=== PATIENT | male | born 1950 | race Caucasian/White ===

== ENCOUNTER 2021-07-20 11:00 | Inpatient (IN) ==
[2021-07-20] MEDS ORDERED: Naloxone 0.4 MG/ML INJ IVP PRN (14:02)
[2021-07-20] MEDS ORDERED: *HR* Heparin 5,000 UNIT/ML VIAL IVP ONE (14:21)
[2021-07-20] MEDS ORDERED: *HR* Heparin 5,000 UNIT/ML VIAL IVP PRN ×2 (14:21)
[2021-07-20] MEDS ORDERED: *HR* Dextrose 50 % in Water (Syg) 50 ML SYRINGE IVP PRN (14:32)
[2021-07-20] MEDS ORDERED: D5% in Water 1,000 ML IVC PRN (14:32)
[2021-07-20] MEDS ORDERED: Dextrose 4 GM Chewable Tablets PO PRN ×2 (14:32)
[2021-07-20] MEDS: Heparin 25,000UNIT/250ML 1/2NS 25,000 UNIT/250 ML IV.SOLN IVC SCH (14:54)
[2021-07-20 15:20] LABS: Heparin anti-factor XA UFH 0.29 IU/mL (0.30-0.70)
[2021-07-20 15:21] LABS: Prothrombin Time 11.5 Seconds (9.4-12.1)
[2021-07-20 15:29] LABS: Hematocrit 41.3 % (37.5-50.1); Hemoglobin 14.9 g/dL (12.9-16.9); Mean Corpuscular HGB Conc 36.1 g/dL (31.6-35.5); Mean Corpuscular Hemoglobin 33.9 pg (28.0-33.3); Mean Corpuscular Volume 93.9 fL (83.0-100.0); Mean Platelet Volume 10.4 fL (9.4-12.4); Platelet Count 301 K/mcL (140-400); Red Cell Distribution Width 12.3 % (11.5-14.5); White Blood Count 11.4 K/mcL (4.3-11.1)
[2021-07-20] MEDS: Insulin LISPRO 300 UNITS/3 ML VIAL SUBQ SCH ×2 (16:14→21:10)
[2021-07-20] MEDS ORDERED: Perflutren Lipid Microsphere 1.3 ML in 0.9 % Sodium Chloride 8.7 ML IVP PRN (17:45)
[2021-07-20] MEDS ORDERED: Insulin DETEMIR 100 UNIT/ML X5UNITS SUBQ SCH (18:00)
[2021-07-20] MEDS: Aspirin Enteric Coated 81 MG Tablet PO SCH (18:31)
[2021-07-20] MEDS: Artificial Tears SOLN 15 ML BOTTLE BOTH EYES SCH (21:08)
[2021-07-20] MEDS: Spironolactone 25 MG TABLET PO SCH (21:08)
[2021-07-21 01:44] LABS: Basophils % 0.4 %; Eosinophils # 0.2 K/mcL (0.0-0.6); Eosinophils % 2.1 %; Hematocrit 37.4 % (37.5-50.1); Hemoglobin 13.6 g/dL (12.9-16.9); Immature Granulocytes % 0.8 % (0-4); Lymphocytes # 2.7 K/mcL (0.6-4.6); Lymphocytes % 27.3 %; Mean Corpuscular HGB Conc 36.4 g/dL (31.6-35.5); Mean Corpuscular Hemoglobin 33.9 pg (28.0-33.3); Mean Corpuscular Volume 93.3 fL (83.0-100.0); Mean Platelet Volume 10.7 fL (9.4-12.4); Monocytes # 0.8 K/mcL (0.0-1.3); Monocytes % 8.5 %; Platelet Count 259 K/mcL (140-400); Red Blood Count 4.01 M/mcL (4.19-5.50); Red Cell Distribution Width 12.2 % (11.5-14.5); Segmented Neutrophils % 60.9 %; White Blood Count 9.8 K/mcL (4.3-11.1)
[2021-07-21 02:00] LABS: BUN/Creatinine Ratio 12 (6-26); Blood Urea Nitrogen 17 mg/dL (8-23); Carbon Dioxide 24 mEq/L (23-29); Chloride 102 mEq/L (98-107); Glucose 143 mg/dL (70-105); Osmolality,Calculated 282 (280-300); Potassium 3.9 mEq/L (3.5-5.1); Sodium 134 mEq/L (136-145); eGFR For African Americans > 60 (> 60); eGFR For Non-African Americans 51 (> 60)
[2021-07-21 02:03] LABS: Troponin I 0.06 ng/mL (< 0.04)
[2021-07-21] MEDS: Heparin 25,000UNIT/250ML 1/2NS 25,000 UNIT/250 ML IV.SOLN IVC SCH (06:53)
[2021-07-21] MEDS: Artificial Tears SOLN 15 ML BOTTLE BOTH EYES SCH ×3 (08:27→22:31)
[2021-07-21] MEDS: Aspirin Enteric Coated 81 MG Tablet PO SCH (08:27)
[2021-07-21] MEDS: Spironolactone 25 MG TABLET PO SCH ×2 (08:27→22:31)
[2021-07-21] MEDS: 0.9 % Sodium Chloride 1,000 ML IVC SCH (08:30)
[2021-07-21] MEDS: Insulin LISPRO 300 UNITS/3 ML VIAL SUBQ SCH ×4 (08:37→22:37)
[2021-07-21] MEDS ORDERED: amLODIPine 5 MG TABLET PO SCH (09:00)
[2021-07-21] MEDS ORDERED: Insulin DETEMIR 100 UNIT/ML X5UNITS SUBQ SCH (09:00)
[2021-07-21] MEDS: *HR* Acetylcysteine 20% 600 MG/3 ML ORAL SYRINGE PO SCH ×2 (10:05→23:27)
[2021-07-21] MEDS ORDERED: 0.9 % Sodium Chloride 2,000 ML ONE (13:26)
[2021-07-21] MEDS ORDERED: Nitroglycerin 1,000 MCG/5 ML VIAL IV ONE (13:26)
[2021-07-21] MEDS ORDERED: Heparin 1,000 UNITS/500 mL 500 ML ONE (13:26)
[2021-07-21] MEDS ORDERED: ISOVUE-370 200 ML INFUS..BTL ONE (13:26)
[2021-07-21] MEDS ORDERED: *HR* Heparin 10,000 UNIT/10 ML VIAL ONE (13:26)
[2021-07-21] MEDS ORDERED: *HR* FentaNYL (PF) 100 MCG/2 ML VIAL ONE (13:55)
[2021-07-21] MEDS ORDERED: *HR* Midazolam HCl 2 MG/2 ML VIAL ONE (13:55)
[2021-07-21 19:38] LABS: Estimated Average Glucose 166 mg/dl; Hemoglobin A1C 7.4 %
[2021-07-21 21:49] LABS: Basophils % 0.3 %; Eosinophils # 0.2 K/mcL (0.0-0.6); Eosinophils % 1.4 %; Hematocrit 41.7 % (37.5-50.1); Immature Granulocytes % 0.8 % (0-4); Mean Corpuscular Hemoglobin 33.5 pg (28.0-33.3); Mean Corpuscular Volume 93.1 fL (83.0-100.0); Mean Platelet Volume 10.1 fL (9.4-12.4); Monocytes # 0.8 K/mcL (0.0-1.3); Monocytes % 7.3 %; Platelet Count 264 K/mcL (140-400); Red Blood Count 4.48 M/mcL (4.19-5.50); Red Cell Distribution Width 12.2 % (11.5-14.5); Segmented Neutrophils % 72.2 %
[2021-07-21 21:57] LABS: INR 1.2
[2021-07-21 21:59] LABS: Activated Partial Thrombo Time 72.3 Seconds (26.0-36.0)
[2021-07-21 22:09] LABS: BUN/Creatinine Ratio 12 (6-26); Blood Urea Nitrogen 16 mg/dL (8-23); Calcium 9.3 mg/dL (8.6-10.3); Carbon Dioxide 25 mEq/L (23-29); Chloride 101 mEq/L (98-107); Chol/HDL Ratio 4.6 (0-4.9); Cholesterol 115 mg/dL (< 200); Glucose 157 mg/dL (70-105); HDL Cholesterol 25 mg/dL (40-59); LDL Cholesterol,Calculated 37 mg/dL (< 100); Osmolality,Calculated 282 (280-300); Potassium 4.2 mEq/L (3.5-5.1); Sodium 134 mEq/L (136-145); Triglycerides 265 mg/dL (< 150); eGFR For African Americans > 60 (> 60); eGFR For Non-African Americans 53 (> 60)
[2021-07-21] MEDS: Chlorhexidine Rinse 15 ML MOUTHWASH MM SCH (22:31)
[2021-07-22 00:49] LABS: Basophils % 0.4 %; Eosinophils # 0.2 K/mcL (0.0-0.6); Eosinophils % 1.4 %; Hematocrit 41.6 % (37.5-50.1); Hemoglobin 14.8 g/dL (12.9-16.9); Immature Granulocytes % 0.6 % (0-4); Lymphocytes # 1.9 K/mcL (0.6-4.6); Lymphocytes % 17.3 %; Mean Corpuscular HGB Conc 35.6 g/dL (31.6-35.5); Mean Corpuscular Hemoglobin 33.1 pg (28.0-33.3); Mean Corpuscular Volume 93.1 fL (83.0-100.0); Mean Platelet Volume 10.1 fL (9.4-12.4); Monocytes # 0.8 K/mcL (0.0-1.3); Monocytes % 6.9 %; Platelet Count 262 K/mcL (140-400); Red Blood Count 4.47 M/mcL (4.19-5.50); Red Cell Distribution Width 12.2 % (11.5-14.5); Segmented Neutrophils % 73.4 %; White Blood Count 10.9 K/mcL (4.3-11.1)
[2021-07-22 01:06] LABS: BUN/Creatinine Ratio 12 (6-26); Blood Urea Nitrogen 15 mg/dL (8-23); Calcium 9.2 mg/dL (8.6-10.3); Carbon Dioxide 24 mEq/L (23-29); Chloride 100 mEq/L (98-107); Glucose 187 mg/dL (70-105); Magnesium 1.6 mg/dL (1.6-2.6); Osmolality,Calculated 278 (280-300); Potassium 4.3 mEq/L (3.5-5.1); Sodium 131 mEq/L (136-145); eGFR For African Americans > 60 (> 60); eGFR For Non-African Americans 57 (> 60)
[2021-07-22] MEDS: 0.9 % Sodium Chloride 1,000 ML IVC SCH (02:06)
[2021-07-22] MEDS: Chlorhexidine Rinse 15 ML MOUTHWASH MM SCH ×2 (05:47→20:39)
[2021-07-22] MEDS ORDERED: NiCARdipine 2.5 MG/10 ML Syringe IVPB ONE (05:55)
[2021-07-22] MEDS ORDERED: Aspirin 81 MG TAB.CHEW PO ONE (06:00)
[2021-07-22] MEDS ORDERED: CeFAZolin Syr 2,000MG/20 ML 2,000 MG/20 ML SYRINGE IVPB ONE ×2 (06:00→07:23)
[2021-07-22] MEDS ORDERED: *HR* Midazolam HCl 5 MG/5 ML VIAL IVP ONE (06:01)
[2021-07-22] MEDS ORDERED: *HR* FentaNYL (PF) 1,000 MCG/20 ML VIAL ONE (06:01)
[2021-07-22] MEDS ORDERED: *HR* Rocuronium Bromide 50 MG/5 ML VIAL ONE ×2 (06:04→10:19)
[2021-07-22] MEDS ORDERED: *HR* Etomidate 20 MG/10 ML AMPUL IVP ONE (06:05)
[2021-07-22] MEDS ORDERED: EPINEPHrine 1 MG/ML VIAL ONE (06:05)
[2021-07-22] MEDS ORDERED: Tranexamic Acid 1,000 MG/10 ML VIAL ONE (06:05)
[2021-07-22] MEDS ORDERED: Papaverine 60 MG/2 ML VIAL IVP ONE ×2 (06:06→09:15)
[2021-07-22] MEDS ORDERED: Protamine Sulfate 250 MG/25 ML VIAL IVP ONE ×2 (06:07→10:01)
[2021-07-22] MEDS ORDERED: DOBUTamine 1,000 MG/250 ML BAG ONE (06:10)
[2021-07-22] MEDS ORDERED: niCARdipine 20 MG/200 ML MLS IVC ONE (06:11)
[2021-07-22] MEDS ORDERED: Naloxone 0.4 MG/ML INJ IVP PRN ×2 (07:23→11:31)
[2021-07-22] MEDS ORDERED: 0.9 % Sodium Chloride 1,000 ML IVC SCH (07:23)
[2021-07-22] MEDS ORDERED: *HR* Dextrose 50 % in Water (Syg) 50 ML SYRINGE IVP PRN ×2 (07:23→11:31)
[2021-07-22] MEDS ORDERED: D5% in Water 1,000 ML IVC PRN (07:23)
[2021-07-22] MEDS ORDERED: Dextrose 4 GM Chewable Tablets PO PRN ×2 (07:23)
[2021-07-22] MEDS ORDERED: Buckersberg's Blood Cardioplegia PF SCH (07:45)
[2021-07-22] MEDS ORDERED: Mannitol 25% vial 3.25 GM, Magnesium Sulfate 2 GM, Sodium Bicarbonate 13 MEQ, Potassium... PF SCH (07:45)
[2021-07-22] MEDS ORDERED: del Nido Cardioplegia Solution PF SCH (07:45)
[2021-07-22] MEDS ORDERED: del Nido Cardioplegia Solution PF ONE (07:45)
[2021-07-22] MEDS ORDERED: Heparin 15,000 UNIT in 0.9 % Sodium Chloride 500 ML IV ONE ×4 (07:45)
[2021-07-22] MEDS ORDERED: Sodium Bicarbonate 10 MEQ, Potassium Chloride 80 MEQ in CARDIOPLEGIC SOLUTION NO.1 1,00... PF SCH (07:45)
[2021-07-22] MEDS ORDERED: Norepinephrine 4 MG in 0.9 % Sodium Chloride 250 ML IVC PRN (07:45)
[2021-07-22] MEDS ORDERED: Mannitol 25% vial 3.25 GM, Magnesium Sulfate 2 GM, Sodium Bicarbonate 13 MEQ, Potassium... PF ONE (07:45)
[2021-07-22 08:37] LABS: ABG Base Excess -4 mEq/L (-2 to 3); ABG Chloride 103 mEq/L (98-107); ABG Glucose 168 mg/dL (60-95); ABG HCO3 21 mEq/L (21-27); ABG Ionized Calcium 1.14 mmol/L (1.15-1.35); ABG Oxygen Saturation 100 % (95-98); ABG PCO2 35 mmHg (35-45); ABG PH 7.38 pH Units (7.32-7.45); ABG PO2 323 mmHg (85-104); ABG TCO2 22 mEq/L (20-26)
[2021-07-22] MEDS ORDERED: Sodium Bicarbonate 50 MEQ/50 ML VIAL ONE (08:42)
[2021-07-22] MEDS ORDERED: *HR* Norepinephrine 4 MG/4 ML VIAL IVC ONE (08:46)
[2021-07-22] MEDS ORDERED: Chlorhexidine Rinse 15 ML MOUTHWASH MM SCH (09:00)
[2021-07-22] MEDS ORDERED: *HR* Acetylcysteine 20% 600 MG/3 ML ORAL SYRINGE PO SCH (09:00)
[2021-07-22 09:41] LABS: ABG Base Excess -5 mEq/L (-2 to 3); ABG Chloride 101 mEq/L (98-107); ABG Glucose 194 mg/dL (60-95); ABG HCO3 21 mEq/L (21-27); ABG Ionized Calcium 1.21 mmol/L (1.15-1.35); ABG Oxygen Saturation 91 % (95-98); ABG PCO2 39 mmHg (35-45); ABG PH 7.33 pH Units (7.32-7.45); ABG PO2 66 mmHg (85-104); ABG TCO2 22 mEq/L (20-26)
[2021-07-22 10:00] LABS: ABG Base Excess -9 mEq/L (-2 to 3); ABG Chloride 99 mEq/L (98-107); ABG Glucose 219 mg/dL (60-95); ABG HCO3 18 mEq/L (21-27); ABG Ionized Calcium 0.94 mmol/L (1.15-1.35); ABG Oxygen Saturation 100 % (95-98); ABG PCO2 44 mmHg (35-45); ABG PH 7.22 pH Units (7.32-7.45); ABG PO2 542 mmHg (85-104); ABG TCO2 20 mEq/L (20-26)
[2021-07-22] MEDS ORDERED: Albumin Human 5% 75.0 GM/1,500 ML IV.SOLN ONE (10:25)
[2021-07-22 10:30] LABS: ABG Base Excess -2 mEq/L (-2 to 3); ABG Chloride 96 mEq/L (98-107); ABG Glucose 211 mg/dL (60-95); ABG HCO3 22 mEq/L (21-27); ABG Ionized Calcium 0.92 mmol/L (1.15-1.35); ABG Oxygen Saturation 100 % (95-98); ABG PCO2 34 mmHg (35-45); ABG PH 7.43 pH Units (7.32-7.45); ABG PO2 615 mmHg (85-104); ABG TCO2 23 mEq/L (20-26)
[2021-07-22] MEDS: Artificial Tears SOLN 15 ML BOTTLE BOTH EYES SCH ×3 (10:37→20:39)
[2021-07-22] MEDS: Insulin LISPRO 300 UNITS/3 ML VIAL SUBQ SCH (10:37)
[2021-07-22] MEDS ORDERED: Heparin 1,000 UNITS/500 mL IV.SOLN IR ONE (10:55)
[2021-07-22] MEDS ORDERED: *HR* Phenylephrine 10 MG/ML VIAL IVC ONE (10:55)
[2021-07-22] MEDS ORDERED: Lidocaine 2% Syringe 100 MG/5 ML IVP ONE (10:55)
[2021-07-22] MEDS ORDERED: Mannitol 25% vial 12.5 GM/50 ML VIAL IVPB ONE (10:55)
[2021-07-22] MEDS ORDERED: *HR* Heparin 10,000 UNIT/10 ML VIAL IR ONE (10:55)
[2021-07-22] MEDS ORDERED: Albumin Human 25% 25 GM/100 ML IV.SOLN IVPB ONE (10:55)
[2021-07-22] MEDS ORDERED: Tranexamic Acid 1,000 MG/10 ML VIAL IR ONE (10:55)
[2021-07-22] MEDS ORDERED: Potassium Chloride 40 MEQ/200 ML BAG IVPB PRN (11:31)
[2021-07-22] MEDS ORDERED: Calcium Gluconate 1gm/50mL 1 GM/50 ML BAG IVPB PRN (11:31)
[2021-07-22] MEDS ORDERED: Acetaminophen 325 MG TABLET PO PRN (11:31)
[2021-07-22] MEDS ORDERED: Ondansetron 4 MG/2 ML VIAL IVP PRN (11:31)
[2021-07-22] MEDS ORDERED: Insulin Regular, Human 100 UNIT/ML IV PRN (11:31)
[2021-07-22 12:03] LABS: ABG Base Excess -5 mEq/L (-2 to 3); ABG HCO3 21 mEq/L (21-27); ABG Oxygen Saturation 92 % (95-98); ABG PCO2 38 mmHg (35-45); ABG PH 7.34 pH Units (7.32-7.45); ABG PO2 68 mmHg (85-104); ABG TCO2 22 mEq/L (20-26); Blood Gas Modality ASSIST CONTROL; Blood Gas VT 500 cc
[2021-07-22] MEDS: Albumin Human 5% 12.5 GM/250 ML IV.SOLN IVPB PRN ×5 (12:09→14:18)
[2021-07-22 12:16] LABS: Basophils % 0.2 %; Eosinophils # 0.1 K/mcL (0.0-0.6); Eosinophils % 0.4 %; Hematocrit 30.4 % (37.5-50.1); Immature Granulocytes % 1.5 % (0-4); Lymphocytes # 1.7 K/mcL (0.6-4.6); Lymphocytes % 9.7 %; Mean Corpuscular HGB Conc 36.2 g/dL (31.6-35.5); Mean Corpuscular Hemoglobin 33.6 pg (28.0-33.3); Mean Platelet Volume 10.2 fL (9.4-12.4); Monocytes % 5.8 %; Neutrophils # 14.1 K/mcL (1.6-8.9); Platelet Count 176 K/mcL (140-400); Red Blood Count 3.27 M/mcL (4.19-5.50); Red Cell Distribution Width 12.1 % (11.5-14.5); Segmented Neutrophils % 82.4 %
[2021-07-22 12:18] LABS: White Blood Count 17.1 K/mcL (4.3-11.1)
[2021-07-22 12:22] LABS: INR 1.5; Prothrombin Time 16.8 Seconds (9.4-12.1)
[2021-07-22 12:25] LABS: Activated Partial Thrombo Time 29.4 Seconds (26.0-36.0)
[2021-07-22 12:27] LABS: BUN/Creatinine Ratio 12 (6-26); Blood Urea Nitrogen 13 mg/dL (8-23); Calcium 7.4 mg/dL (8.6-10.3); Carbon Dioxide 23 mEq/L (23-29); Chloride 101 mEq/L (98-107); Glucose 239 mg/dL (70-105); Magnesium 1.4 mg/dL (1.6-2.6); Osmolality,Calculated 288 (280-300); Potassium 4.3 mEq/L (3.5-5.1); Sodium 135 mEq/L (136-145); eGFR For African Americans > 60 (> 60); eGFR For Non-African Americans > 60 (> 60)
[2021-07-22] MEDS: niCARdipine 20 MG/200 ML MLS IVC SCH ×3 (13:15→18:25)
[2021-07-22] MEDS: DOBUTamine 1,000 MG/250 ML BAG IVC SCH (13:16)
[2021-07-22] MEDS: Norepinephrine 4 MG/254 ML IV.SOLN IVC SCH ×2 (13:16→15:27)
[2021-07-22] MEDS: *HR* FentaNYL (PF) 100 MCG/2 ML VIAL IVP PRN ×3 (13:35→22:00)
[2021-07-22 13:51] LABS: ABG Base Excess -4 mEq/L (-2 to 3); ABG Chloride 97 mEq/L (98-107); ABG Glucose 236 mg/dL (60-95); ABG HCO3 21 mEq/L (21-27); ABG Oxygen Saturation 97 % (95-98); ABG PCO2 37 mmHg (35-45); ABG PH 7.36 pH Units (7.32-7.45); ABG PO2 97 mmHg (85-104); ABG TCO2 22 mEq/L (20-26)
[2021-07-22] MEDS: Pantoprazole 40 MG VIAL IVP SCH (14:43)
[2021-07-22] MEDS: CeFAZolin 2 GM/120 ML BAG IVPB SCH (15:05)
[2021-07-22 16:08] LABS: ABG Base Excess -9 mEq/L (-2 to 3); ABG HCO3 17 mEq/L (21-27); ABG Oxygen Saturation 92 % (95-98); ABG PCO2 35 mmHg (35-45); ABG PH 7.29 pH Units (7.32-7.45); ABG PO2 71 mmHg (85-104); ABG TCO2 18 mEq/L (20-26); Blood Gas Modality CPAP/PS; Blood Gas Pressure Support 5 cm H2O
[2021-07-22 17:09] LABS: ABG Base Excess -7 mEq/L (-2 to 3); ABG HCO3 18 mEq/L (21-27); ABG Oxygen Saturation 92 % (95-98); ABG PCO2 33 mmHg (35-45); ABG PH 7.35 pH Units (7.32-7.45); ABG PO2 67 mmHg (85-104); ABG TCO2 19 mEq/L (20-26)
[2021-07-22 18:12] LABS: Calcium 8.3 mg/dL (8.6-10.3); Magnesium 2.2 mg/dL (1.6-2.6); Potassium 3.6 mEq/L (3.5-5.1)
[2021-07-22] MEDS ORDERED: Insulin LISPRO 300 UNITS/3 ML VIAL SUBQ SCH (21:00)
[2021-07-23] MEDS: CeFAZolin 2 GM/120 ML BAG IVPB SCH ×2 (01:07→08:01)
[2021-07-23 01:20] LABS: BUN/Creatinine Ratio 12 (6-26); Blood Urea Nitrogen 12 mg/dL (8-23); Calcium 8.6 mg/dL (8.6-10.3); Carbon Dioxide 24 mEq/L (23-29); Chloride 104 mEq/L (98-107); Glucose 129 mg/dL (70-105); Magnesium 2.2 mg/dL (1.6-2.6); Osmolality,Calculated 283 (280-300); Potassium 3.9 mEq/L (3.5-5.1); Sodium 136 mEq/L (136-145); eGFR For African Americans > 60 (> 60); eGFR For Non-African Americans > 60 (> 60)
[2021-07-23 05:11] LABS: Basophils % 0.1 %; Hematocrit 28.1 % (37.5-50.1); Immature Granulocytes % 0.7 % (0-4); Lymphocytes # 0.6 K/mcL (0.6-4.6); Mean Corpuscular HGB Conc 35.6 g/dL (31.6-35.5); Mean Corpuscular Hemoglobin 33.4 pg (28.0-33.3); Mean Platelet Volume 10.3 fL (9.4-12.4); Monocytes # 1.3 K/mcL (0.0-1.3); Monocytes % 10.2 %; Neutrophils # 10.3 K/mcL (1.6-8.9); Platelet Count 198 K/mcL (140-400); Red Blood Count 2.99 M/mcL (4.19-5.50); Red Cell Distribution Width 12.7 % (11.5-14.5); White Blood Count 12.2 K/mcL (4.3-11.1)
[2021-07-23 05:21] LABS: INR 1.3; Prothrombin Time 14.4 Seconds (9.4-12.1)
[2021-07-23 05:23] LABS: Activated Partial Thrombo Time 29.7 Seconds (26.0-36.0)
[2021-07-23 05:31] LABS: BUN/Creatinine Ratio 11 (6-26); Blood Urea Nitrogen 13 mg/dL (8-23); Calcium 8.6 mg/dL (8.6-10.3); Carbon Dioxide 24 mEq/L (23-29); Chloride 103 mEq/L (98-107); Glucose 153 mg/dL (70-105); Magnesium 2.6 mg/dL (1.6-2.6); Osmolality,Calculated 283 (280-300); Potassium 4.2 mEq/L (3.5-5.1); Sodium 135 mEq/L (136-145); eGFR For African Americans > 60 (> 60); eGFR For Non-African Americans > 60 (> 60)
[2021-07-23] MEDS ORDERED: *HR* Heparin 5,000 UNIT/ML VIAL SQ SCH ×2 (06:00→18:00)
[2021-07-23] MEDS: *HR* OxyCODONE/APAP 5/325 TABLET PO PRN ×3 (06:38→16:35)
[2021-07-23] MEDS: Artificial Tears SOLN 15 ML BOTTLE BOTH EYES SCH ×3 (08:01→16:35)
[2021-07-23] MEDS: Chlorhexidine Rinse 15 ML MOUTHWASH MM SCH ×2 (08:01→21:15)
[2021-07-23] MEDS: Pantoprazole 40 MG VIAL IVP SCH (08:02)
[2021-07-23] MEDS: DOBUTamine 1,000 MG/250 ML BAG IVC SCH (08:44)
[2021-07-23] MEDS: niCARdipine 20 MG/200 ML MLS IVC SCH ×3 (08:44→08:46)
[2021-07-23] MEDS ORDERED: Aspirin Enteric Coated 81 MG Tablet PO SCH (09:00)
[2021-07-23] MEDS: *HR* FentaNYL (PF) 100 MCG/2 ML VIAL IVP PRN (09:42)
[2021-07-23] MEDS ORDERED: Furosemide 40 MG/4 ML VIAL IVP SCH (10:45)
[2021-07-23] MEDS ORDERED: Ondansetron 4 MG/2 ML VIAL IVP PRN (14:30)
[2021-07-23] MEDS ORDERED: *HR* Dextrose 50 % in Water (Syg) 50 ML SYRINGE IVP PRN ×2 (14:30→17:00)
[2021-07-23] MEDS ORDERED: D5% in Water 1,000 ML IVC PRN ×2 (14:30→17:00)
[2021-07-23] MEDS ORDERED: Dextrose 4 GM Chewable Tablets PO PRN ×4 (14:30→17:00)
[2021-07-23] MEDS ORDERED: Calcium Gluconate 1gm/50mL 1 GM/50 ML BAG IVPB PRN (14:30)
[2021-07-23] MEDS ORDERED: Potassium Chloride 40 MEQ/200 ML BAG IVPB PRN (14:30)
[2021-07-23] MEDS ORDERED: Mannitol 25% vial 3.25 GM, Magnesium Sulfate 2 GM, Sodium Bicarbonate 13 MEQ, Potassium... PF SCH (14:30)
[2021-07-23] MEDS ORDERED: Acetaminophen 325 MG TABLET PO PRN (14:30)
[2021-07-23] MEDS ORDERED: Sodium Bicarbonate 10 MEQ, Potassium Chloride 80 MEQ in CARDIOPLEGIC SOLUTION NO.1 1,00... PF SCH (14:30)
[2021-07-23] MEDS ORDERED: Naloxone 0.4 MG/ML INJ IVP PRN (14:30)
[2021-07-23] MEDS ORDERED: CeFAZolin 2,000 MG/120 ML BAG IVPB SCH (16:00)
[2021-07-23] MEDS ORDERED: CeFAZolin 2 GM/120 ML BAG IVPB SCH (16:00)
[2021-07-23] MEDS: CeFAZolin 2 GM/100 ML BAG IVPB SCH (16:32)
[2021-07-23] MEDS ORDERED: Insulin DETEMIR 100 UNIT/ML X5UNITS SUBQ SCH (17:00)
[2021-07-23] MEDS ORDERED: Insulin LISPRO 300 UNITS/3 ML VIAL SUBQ SCH (21:00)
[2021-07-23] MEDS: *HR* Heparin 5,000 UNIT/ML VIAL SQ SCH (21:15)
[2021-07-23] MEDS: Insulin LISPRO 300 UNITS/3 ML VIAL SUBQ SCH (21:15)
[2021-07-23] MEDS: Furosemide 40 MG/4 ML VIAL IVP SCH (21:15)
[2021-07-24] MEDS: CeFAZolin 2 GM/100 ML BAG IVPB SCH ×2 (00:07→10:37)
[2021-07-24] MEDS: *HR* OxyCODONE/APAP 5/325 TABLET PO PRN ×2 (00:27→18:59)
[2021-07-24 04:26] LABS: Basophils % 0.1 %; Hematocrit 27.8 % (37.5-50.1); Hemoglobin 9.7 g/dL (12.9-16.9); Immature Granulocytes % 1.1 % (0-4); Lymphocytes % 5.9 %; Mean Corpuscular HGB Conc 34.9 g/dL (31.6-35.5); Mean Corpuscular Volume 94.6 fL (83.0-100.0); Mean Platelet Volume 10.5 fL (9.4-12.4); Monocytes % 8.5 %; Platelet Count 189 K/mcL (140-400); Red Blood Count 2.94 M/mcL (4.19-5.50); Red Cell Distribution Width 13.1 % (11.5-14.5); Segmented Neutrophils % 84.4 %; White Blood Count 13.6 K/mcL (4.3-11.1)
[2021-07-24 04:27] LABS: Lymphocytes # 0.8 K/mcL (0.6-4.6); Monocytes # 1.2 K/mcL (0.0-1.3); Neutrophils # 11.4 K/mcL (1.6-8.9)
[2021-07-24 04:45] LABS: BUN/Creatinine Ratio 14 (6-26); Blood Urea Nitrogen 19 mg/dL (8-23); Calcium 8.7 mg/dL (8.6-10.3); Carbon Dioxide 27 mEq/L (23-29); Chloride 100 mEq/L (98-107); Glucose 250 mg/dL (70-105); Magnesium 2.2 mg/dL (1.6-2.6); Osmolality,Calculated 291 (280-300); Sodium 135 mEq/L (136-145); eGFR For African Americans > 60 (> 60); eGFR For Non-African Americans 53 (> 60)
[2021-07-24] MEDS: *HR* Heparin 5,000 UNIT/ML VIAL SQ SCH ×3 (04:55→20:01)
[2021-07-24] MEDS ORDERED: Insulin LISPRO 300 UNITS/3 ML VIAL SUBQ SCH (07:30)
[2021-07-24] MEDS: Insulin LISPRO 300 UNITS/3 ML VIAL SUBQ SCH ×4 (08:22→21:04)
[2021-07-24] MEDS: Aspirin Enteric Coated 81 MG Tablet PO SCH (08:25)
[2021-07-24] MEDS: Furosemide 40 MG/4 ML VIAL IVP SCH ×2 (08:26→19:53)
[2021-07-24] MEDS: Pantoprazole 40 MG VIAL IVP SCH (08:28)
[2021-07-24] MEDS: Chlorhexidine Rinse 15 ML MOUTHWASH MM SCH ×2 (08:28→19:52)
[2021-07-24] MEDS: Insulin DETEMIR 100 UNIT/ML X5UNITS SUBQ SCH ×2 (10:18→20:01)
[2021-07-24] MEDS: Metoprolol XL (24 HR) Succ 25 MG TAB.ER.24H PO SCH (14:17)
[2021-07-25 03:27] LABS: Basophils % 0.1 %; Hematocrit 26.7 % (37.5-50.1); Hemoglobin 9.2 g/dL (12.9-16.9); Immature Granulocytes % 1.8 % (0-4); Lymphocytes # 1.2 K/mcL (0.6-4.6); Lymphocytes % 8.4 %; Mean Corpuscular HGB Conc 34.5 g/dL (31.6-35.5); Mean Corpuscular Hemoglobin 33.7 pg (28.0-33.3); Mean Corpuscular Volume 97.8 fL (83.0-100.0); Mean Platelet Volume 10.7 fL (9.4-12.4); Monocytes # 0.9 K/mcL (0.0-1.3); Monocytes % 6.5 %; Neutrophils # 11.8 K/mcL (1.6-8.9); Platelet Count 196 K/mcL (140-400); Red Blood Count 2.73 M/mcL (4.19-5.50); Red Cell Distribution Width 13.2 % (11.5-14.5); Segmented Neutrophils % 83.2 %; White Blood Count 14.1 K/mcL (4.3-11.1)
[2021-07-25 03:44] LABS: BUN/Creatinine Ratio 21 (6-26); Blood Urea Nitrogen 27 mg/dL (8-23); Calcium 8.5 mg/dL (8.6-10.3); Carbon Dioxide 28 mEq/L (23-29); Chloride 101 mEq/L (98-107); Glucose 189 mg/dL (70-105); Osmolality,Calculated 292 (280-300); Sodium 136 mEq/L (136-145); eGFR For African Americans > 60 (> 60); eGFR For Non-African Americans 56 (> 60)
[2021-07-25] MEDS: *HR* Heparin 5,000 UNIT/ML VIAL SQ SCH ×3 (05:23→20:34)
[2021-07-25] MEDS: Aspirin Enteric Coated 81 MG Tablet PO SCH (09:00)
[2021-07-25] MEDS: Insulin DETEMIR 100 UNIT/ML X5UNITS SUBQ SCH ×2 (09:00→20:35)
[2021-07-25] MEDS: Pantoprazole 40 MG VIAL IVP SCH (09:00)
[2021-07-25] MEDS: Metoprolol XL (24 HR) Succ 25 MG TAB.ER.24H PO SCH (09:00)
[2021-07-25] MEDS: Insulin LISPRO 300 UNITS/3 ML VIAL SUBQ SCH ×4 (09:00→20:38)
[2021-07-25] MEDS: Furosemide 40 MG/4 ML VIAL IVP SCH (09:00)
[2021-07-25] MEDS: Chlorhexidine Rinse 15 ML MOUTHWASH MM SCH ×2 (09:56→20:26)
[2021-07-25 10:11] LABS: Bacteria,Urine Few per hpf (None-Few); Bilirubin,Urine Negative (Negative); Blood,Urine Large (Negative); Clarity,Urine Clear (Clear); Color,Urine Light-Yellow (Yellow); Glucose,Urine (UA) 300 mg/dL (Normal); Ketones,Urine Negative (Negative); Leukocyte Esterase,Urine Trace (Negative); Mucus,Urine Few per lpf (None-Few); Nitrite,Urine Negative (Negative); PH,Urine 6.5 pH Units (5.0-8.0); Protein,Urine Trace mg/dL (Neg-Trace); RBC,Urine TNTC per hpf (0-3); Specific Gravity,Urine 1.012 (1.010-1.025); Urobilinogen,Urine Normal (Normal)
[2021-07-25] MEDS: Levalbuterol Neb 0.63 MG/3 ML IH SCH ×3 (11:20→20:03)
[2021-07-25] MEDS: Doxycycline 100 MG in 0.9 % Sodium Chloride Mini Bag 100 ML IVPB SCH (16:10)
[2021-07-25] MEDS: cefTRIAXone 1,000 MG in 0.9 % Sodium Chloride 10 ML IVPB SCH (16:10)
[2021-07-25] MEDS ORDERED: Amiodarone Premix 150 MG/100 ML BAG IVPB ONE (19:44)
[2021-07-26] MEDS: Amiodarone Premix 360 MG/200 ML BAG IVC SCH ×2 (03:05→13:49)
[2021-07-26] MEDS: Levalbuterol Neb 0.63 MG/3 ML IH SCH ×4 (04:11→19:52)
[2021-07-26] MEDS: Doxycycline 100 MG in 0.9 % Sodium Chloride Mini Bag 100 ML IVPB SCH ×2 (05:46→18:35)
[2021-07-26] MEDS: *HR* Heparin 5,000 UNIT/ML VIAL SQ SCH ×3 (05:47→21:08)
[2021-07-26 07:27] LABS: Basophils % 0.2 %; Eosinophils % 0.1 %; Hematocrit 27.6 % (37.5-50.1); Hemoglobin 9.2 g/dL (12.9-16.9); Lymphocytes # 1.4 K/mcL (0.6-4.6); Lymphocytes % 11.6 %; Mean Corpuscular HGB Conc 33.3 g/dL (31.6-35.5); Mean Corpuscular Hemoglobin 32.6 pg (28.0-33.3); Mean Corpuscular Volume 97.9 fL (83.0-100.0); Mean Platelet Volume 10.7 fL (9.4-12.4); Monocytes # 0.9 K/mcL (0.0-1.3); Monocytes % 7.2 %; Neutrophils # 9.4 K/mcL (1.6-8.9); Platelet Count 246 K/mcL (140-400); Red Blood Count 2.82 M/mcL (4.19-5.50); Red Cell Distribution Width 13.2 % (11.5-14.5); Segmented Neutrophils % 78.9 %
[2021-07-26 07:47] LABS: BUN/Creatinine Ratio 27 (6-26); Blood Urea Nitrogen 33 mg/dL (8-23); Calcium 8.3 mg/dL (8.6-10.3); Carbon Dioxide 27 mEq/L (23-29); Chloride 100 mEq/L (98-107); Glucose 157 mg/dL (70-105); Magnesium 2.1 mg/dL (1.6-2.6); Osmolality,Calculated 289 (280-300); Sodium 134 mEq/L (136-145); eGFR For African Americans > 60 (> 60); eGFR For Non-African Americans 59 (> 60)
[2021-07-26] MEDS: cefTRIAXone 1,000 MG in 0.9 % Sodium Chloride 10 ML IVPB SCH (08:27)
[2021-07-26] MEDS: Furosemide 40 MG/4 ML VIAL IVP SCH (08:28)
[2021-07-26] MEDS: Insulin DETEMIR 100 UNIT/ML X5UNITS SUBQ SCH ×2 (08:29→21:08)
[2021-07-26] MEDS: Chlorhexidine Rinse 15 ML MOUTHWASH MM SCH ×2 (08:29→21:08)
[2021-07-26] MEDS: Metoprolol XL (24 HR) Succ 25 MG TAB.ER.24H PO SCH (08:30)
[2021-07-26] MEDS: Aspirin Enteric Coated 81 MG Tablet PO SCH (08:30)
[2021-07-26] MEDS: Insulin LISPRO 300 UNITS/3 ML VIAL SUBQ SCH ×4 (08:31→21:08)
[2021-07-27 01:23] LABS: BUN/Creatinine Ratio 25 (6-26); Blood Urea Nitrogen 30 mg/dL (8-23); Calcium 8.2 mg/dL (8.6-10.3); Carbon Dioxide 25 mEq/L (23-29); Chloride 102 mEq/L (98-107); Glucose 125 mg/dL (70-105); Magnesium 2.1 mg/dL (1.6-2.6); Osmolality,Calculated 286 (280-300); Potassium 3.7 mEq/L (3.5-5.1); Sodium 134 mEq/L (136-145); eGFR For African Americans > 60 (> 60); eGFR For Non-African Americans > 60 (> 60)
[2021-07-27 01:42] LABS: Basophils % 0.2 %; Eosinophils # 0.1 K/mcL (0.0-0.6); Eosinophils % 0.5 %; Hematocrit 28.3 % (37.5-50.1); Hemoglobin 9.7 g/dL (12.9-16.9); Immature Granulocytes % 2.5 % (0-4); Lymphocytes # 2.2 K/mcL (0.6-4.6); Lymphocytes % 17.4 %; Mean Corpuscular HGB Conc 34.3 g/dL (31.6-35.5); Mean Corpuscular Hemoglobin 32.9 pg (28.0-33.3); Mean Corpuscular Volume 95.9 fL (83.0-100.0); Mean Platelet Volume 10.8 fL (9.4-12.4); Neutrophils # 9.2 K/mcL (1.6-8.9); Nucleated Red Blood Cells 0.2 /100 WBC (0); Platelet Count 282 K/mcL (140-400); Red Blood Count 2.95 M/mcL (4.19-5.50); Red Cell Distribution Width 13.1 % (11.5-14.5); Segmented Neutrophils % 71.4 %; White Blood Count 12.8 K/mcL (4.3-11.1)
[2021-07-27] MEDS: Amiodarone Premix 360 MG/200 ML BAG IVC SCH ×2 (01:49→13:16)
[2021-07-27] MEDS: Levalbuterol Neb 0.63 MG/3 ML IH SCH ×4 (04:04→20:00)
[2021-07-27] MEDS: Doxycycline 100 MG in 0.9 % Sodium Chloride Mini Bag 100 ML IVPB SCH ×2 (05:52→17:13)
[2021-07-27] MEDS: *HR* Heparin 5,000 UNIT/ML VIAL SQ SCH ×3 (05:52→22:12)
[2021-07-27] MEDS: Aspirin Enteric Coated 81 MG Tablet PO SCH (08:19)
[2021-07-27] MEDS: Metoprolol XL (24 HR) Succ 25 MG TAB.ER.24H PO SCH (08:19)
[2021-07-27] MEDS: Chlorhexidine Rinse 15 ML MOUTHWASH MM SCH (08:21)
[2021-07-27] MEDS: Furosemide 40 MG/4 ML VIAL IVP SCH (08:22)
[2021-07-27] MEDS: cefTRIAXone 1,000 MG in 0.9 % Sodium Chloride 10 ML IVPB SCH (08:23)
[2021-07-27] MEDS: Insulin LISPRO 300 UNITS/3 ML VIAL SUBQ SCH ×4 (08:27→20:25)
[2021-07-27] MEDS: Insulin DETEMIR 100 UNIT/ML X5UNITS SUBQ SCH ×2 (08:29→20:24)
[2021-07-27] MEDS: *HR* OxyCODONE/APAP 5/325 TABLET PO PRN (13:00)
[2021-07-27] MEDS: *HR* Amiodarone 200 MG TABLET PO SCH ×2 (14:38→22:12)
[2021-07-28 01:34] LABS: Basophils # 0.1 K/mcL (0.0-0.2); Basophils % 0.3 %; Eosinophils # 0.1 K/mcL (0.0-0.6); Eosinophils % 0.5 %; Hematocrit 27.7 % (37.5-50.1); Hemoglobin 9.7 g/dL (12.9-16.9); Immature Granulocytes % 4.5 % (0-4); Lymphocytes # 1.6 K/mcL (0.6-4.6); Lymphocytes % 9.8 %; Mean Corpuscular Volume 97.2 fL (83.0-100.0); Mean Platelet Volume 10.4 fL (9.4-12.4); Monocytes # 1.3 K/mcL (0.0-1.3); Monocytes % 7.7 %; Neutrophils # 12.6 K/mcL (1.6-8.9); Nucleated Red Blood Cells 0.2 /100 WBC (0); Platelet Count 308 K/mcL (140-400); Red Blood Count 2.85 M/mcL (4.19-5.50); Red Cell Distribution Width 13.2 % (11.5-14.5); Segmented Neutrophils % 77.2 %; White Blood Count 16.3 K/mcL (4.3-11.1)
[2021-07-28 01:41] LABS: BUN/Creatinine Ratio 21 (6-26); Blood Urea Nitrogen 25 mg/dL (8-23); Calcium 8.4 mg/dL (8.6-10.3); Carbon Dioxide 26 mEq/L (23-29); Chloride 104 mEq/L (98-107); Glucose 77 mg/dL (70-105); Osmolality,Calculated 287 (280-300); Potassium 4.1 mEq/L (3.5-5.1); Sodium 137 mEq/L (136-145); eGFR For African Americans > 60 (> 60); eGFR For Non-African Americans 59 (> 60)
[2021-07-28] MEDS: Levalbuterol Neb 0.63 MG/3 ML IH SCH ×3 (03:59→15:32)
[2021-07-28] MEDS: Doxycycline 100 MG in 0.9 % Sodium Chloride Mini Bag 100 ML IVPB SCH (06:27)
[2021-07-28] MEDS: *HR* Heparin 5,000 UNIT/ML VIAL SQ SCH ×2 (06:28→15:59)
[2021-07-28 07:45] VITALS: BP 156/75
[2021-07-28] MEDS: Insulin LISPRO 300 UNITS/3 ML VIAL SUBQ SCH ×3 (08:20→16:20)
[2021-07-28] MEDS: Aspirin Enteric Coated 81 MG Tablet PO SCH (08:24)
[2021-07-28] MEDS: Metoprolol XL (24 HR) Succ 25 MG TAB.ER.24H PO SCH (08:25)
[2021-07-28] MEDS: *HR* Amiodarone 200 MG TABLET PO SCH ×2 (08:25→16:47)
[2021-07-28] MEDS: Furosemide 40 MG/4 ML VIAL IVP SCH (08:25)
[2021-07-28] MEDS: cefTRIAXone 1,000 MG in 0.9 % Sodium Chloride 10 ML IVPB SCH (08:25)
[2021-07-28] MEDS: Insulin DETEMIR 100 UNIT/ML X5UNITS SUBQ SCH (08:27)
[2021-07-28 12:11] VITALS: TEMP 98.5
[2021-07-28 12:53] VITALS: PULSE 75
[2021-07-28 15:32] VITALS: O2SAT 92
== END 2021-07-28 17:10 | disposition home health service (06) | DRG 233 ==
LOC: 2ANU → SUATTDRO 12:52 → ICNU 07-21 19:59 → 2NNU 07-23 16:24
PROVIDERS: ADMIT Internal Medicine; ATTEND Pharmacist